=== PATIENT | male | born 1980 | race Caucasian/White ===

== ENCOUNTER → 2017-03-12 | Day surgery (SDC) | payer BC, OTHER ==
[~2017-03-12] MED LIST: LIDOCAINE 2% INJ 20 MG/ML (20 ML MDV) ONE; LIDOCAINE 2% INJ 20 MG/ML SQ ONE
[2017-03-12 09:16] VITALS: BP 131/70; PULSE 89; RESP 18; TEMP 98.9
[2017-03-12 09:29] LABS: Basophils % (A) 0 %; CH 29.8; CHCM 33.9; Eosinophils % (A) 0 %; HCT 38.5 % (39.0-53.0); HDW 2.99; HGB 12.7 gm/dL (13.0-17.5); Luc # (Auto) 0.42; Luc % (Auto) 2; Lymphocytes # (A) 0.8 k/uL (1.0-4.8); Lymphocytes % (A) 4 %; MCH 29.2 pg (25.0-35.0); MCHC 33.1 g/dL (31.0-37.0); MCV 88.3 fL (80.0-100.0); Mean Platelet Volume 7.3; Monocytes # (A) 0.7 k/uL (0-1.0); Monocytes % (A) 4 %; Neutrophils # (A) 17.2 k/uL (1.3-7.7); Neutrophils % (A) 90 %; RBC 4.36 m/uL (4.30-5.90); RDW 13.2 % (11.5-15.5); WBC 19.1 k/uL (3.8-10.6)
--- NOTE | 2017-03-12 11:45 | IR ---
EXAMINATION TYPE: IR cvc insert >=5 years DATE OF EXAM: 03/12/2017 COMPARISON: NONE CLINICAL HISTORY: Cystic fibrosis Needs long-term intravenous access for therapy. PROCEDURE: After informed consent, the skin overlying the right basilic vein was localized with ultrasound and n oted to be compressible and patent. An ultrasound image was obtained and submitted on the patient's chart. The overlying skin was prepped and draped and Lidocaine was used for local anesthesia. A ski n sergio was made with a scalpel. Access was gained to the vein under ultrasound guidance with a 21 ga uge needle and a 0.018 inch wire was advanced. Access site was dilated with Peel-Away sheath and cat heter tailored to the appropriate length and advanced such that the distal tip is at the cavoatrial j unction. Spot image was obtained verifying placement. Catheter was fixed to the skin with suture an d a sterile dressing was placed following hemostasis. Catheter was aspirated and flushed with saline . Patient was discharged in stable condition without complication.Maximal barrier technique is utili zed. Ultrasound image is documented on the chart. Ultrasound used with sterile technique. Fluoro time and fluoroscopic images submitted to document procedure: 14 intraoperative C-arm images, 0.3 minutes fluoroscopy time IMPRESSION: STATUS POST ULTRASOUND AND FLUOROSCOPIC GUIDED PICC LINE PLACEMENT, READY FOR USE. THIS PROCEDURE WAS PERFORMED BY THE UNDERSIGNED.
== END ==
LOC: CATHCVL 08:57
PROVIDERS: ATTEND Radiology Diagnostic Radiology
DX: E84.0 Cystic fibrosis with pulmonary manifestations (principal); K86.81 Exocrine pancreatic insufficiency
CPT/HCPCS: 36569; 76937; 77001; 85025; C1751; C1769; J2001

== ENCOUNTER → 2017-07-02 | Outpatient (CLI) | payer BC, OTHER ==
--- NOTE | 2017-07-02 15:49 | XR ---
EXAMINATION TYPE: XR chest 2V DATE OF EXAM: 07/02/2017 COMPARISON: 03/11/2015 TECHNIQUE: PA and lateral views submitted. HISTORY: Cough FINDINGS: Heart size is stable. There is a persistent interstitial pattern compatible with history of cystic fi brosis. Biapical pleural thickening. More focal area of consolidation in the right upper lobe and per ihilar region. No pneumothorax. Hyperinflation seen. IMPRESSION: 1. Findings compatible with the patient's history of cystic fibrosis. Right perihilar and upper lobe infiltrate suspected correlate for pneumonia.
== END | disposition home or self-care (01) ==
LOC: RADXRMAIN 14:50
PROVIDERS: ATTEND Internal Medicine
DX: R91.8 Other nonspecific abnormal finding of lung field (principal)
CPT/HCPCS: 71046

== ENCOUNTER 2017-07-26 23:19 | Inpatient (IN) | payer BC, OTHER ==
[2017-07-27 00:16] LABS: Basophils % (A) 0 %; Eosinophils # (A) 0.1 k/uL (0-0.7); Eosinophils % (A) 0 %; HCT 37.9 % (39.0-53.0); HGB 12.8 gm/dL (13.0-17.5); Lymphocytes # (A) 0.9 k/uL (1.0-4.8); Lymphocytes % (A) 5 %; MCHC 33.7 g/dL (31.0-37.0); MCV 83.1 fL (80.0-100.0); Mean Platelet Volume 7.4; Monocytes # (A) 0.5 k/uL (0-1.0); Monocytes % (A) 2 %; Neutrophils # (A) 16.9 k/uL (1.3-7.7); Neutrophils % (A) 91 %; Platelet Count 502 k/uL (150-450); RBC 4.56 m/uL (4.30-5.90); WBC 18.5 k/uL (3.8-10.6)
[2017-07-27] MEDS ORDERED: ONDANSETRON 4 MG/2 ML VIAL IVP STA ×2 (00:24→01:43)
[2017-07-27] MEDS ORDERED: MORPHINE SULFATE 4MG/4ML SYRG IV STA ×2 (00:24→00:54)
[2017-07-27] MEDS ORDERED: FAMOTIDINE 20 MG/2 ML VIAL IV STA (00:24)
[2017-07-27] MEDS ORDERED: SODIUM CHLORIDE 0.9% 1,000 ML IV ONE ×2 (00:25→03:14)
[2017-07-27 00:26] LABS: ALT 34 U/L (21-72); AST 30 U/L (17-59); Albumin 4.1 g/dL (3.5-5.0); Alkaline Phosphatase 268 U/L (38-126); Amylase 32 U/L (30-110); Anion Gap 21 mmol/L; Blood Urea Nitrogen 17 mg/dL (9-20); Calcium 10.1 mg/dL (8.4-10.2); Carbon Dioxide 15 mmol/L (22-30); Chloride 104 mmol/L (98-107); Glucose 258 mg/dL (74-99); Lipase <10 U/L (23-300); Potassium 4.5 mmol/L (3.5-5.1); Sodium 140 mmol/L (137-145); Total Bilirubin 0.8 mg/dL (0.2-1.3); Total Protein 8.5 g/dL (6.3-8.2)
[2017-07-27] MEDS ORDERED: LORazepam 2 MG/ML INJ IV STA ×3 (00:52→03:00)
[2017-07-27] MEDS ORDERED: MORPHINE SULFATE 4MG/4ML SYRG ONE (00:57)
[2017-07-27] MEDS ORDERED: fentaNYL (PF) 50 MCG/ML 2 ML AMP IV STA (01:12)
[2017-07-27] MEDS ORDERED: MORPHINE ORAL SOLN 10 MG/5 ML CUP PO PRN (01:15)
[2017-07-27] MEDS ORDERED: NALOXONE 0.4 MG/ML 1 ML VIAL IV PRN (01:15)
[2017-07-27] MEDS ORDERED: HYDROcodone/APAP 7.5-325MG 1 EACH TAB PO PRN (01:17)
[2017-07-27 01:36] LABS: Appearance,Urine Clear (Clear); Bacteria,Urine Rare /hpf; Bilirubin,Urine Negative (Negative); Blood,Urine Trace (Negative); Color,Urine Yellow; Glucose,Urine (UA) Negative (Negative); Ketones,Urine 1+ (Negative); Leukocyte Esterase,Urine Negative (Negative); Nitrite,Urine Negative (Negative); Protein,Urine 2+ (Negative); RBC,Urine 17 /hpf (0-5); Specific Gravity,Urine 1.021 (1.001-1.035); Urobilinogen,Urine <2.0 mg/dL (<2.0); WBC,Urine 2 /hpf (0-5)
[2017-07-27] MEDS ORDERED: RX INFO: IV CONTRAST WAS GIVEN 1 EACH MISC MISCELLANE PRN (01:40)
[2017-07-27] MEDS: ONDANSETRON 4 MG/2 ML VIAL IVP PRN ×3 (01:45→22:56)
--- NOTE | 2017-07-27 01:49 | XR ---
EXAMINATION TYPE: XR abdomen 2V DATE OF EXAM: 07/27/2017 COMPARISON: 03/11/2015 HISTORY: Vomiting and abdominal pain TECHNIQUE: 3 views FINDINGS: There is no sign of free air. There is some thumbprinting involving small bowel in the mid abdomen. Fecal pattern is normal. There are clips from cholecystectomy. Lung bases are clear of conso lidation. IMPRESSION: Small bowel thumbprinting is suggestive of small bowel edema. This is nonspecific and cou ld relate to ischemia or infiltrative process. This exam was discussed with ER physician at 1:45 AM.
--- NOTE | 2017-07-27 03:01 | CT ---
EXAMINATION TYPE: CT abdomen pelvis w con DATE OF EXAM: 07/27/2017 COMPARISON: NONE HISTORY: abd pain CT DLP: 388.80 mGycm Automated exposure control for dose reduction was used. TECHNIQUE: Helical acquisition of images was performed from the lung bases through the pelvis. CONTRAST: Performed without Oral Contrast and with IV Contrast, patient injected with 100 mL of Isovue 300. FINDINGS: The lung bases show peribronchial thickening. There is a hiatal hernia. There is no pleural effusion. Liver shows no focal defect. Bile ducts are not dilated. There are clips from cholecystectomy. There is no evidence of a splenic mass. Pancreas is not well defined. There are multiple loops of small bowel with wall thickening in the upper and mid abdomen. The wall i s thickened up to 10 mm. There is mild free fluid in the abdomen. The distal small bowel has more nor mal wall thickness. Bladder distends smoothly. The kidneys show satisfactory contrast opacification. There is no hydronephrosis. There is a 8 mm tish culus in the lower pole right kidney. There is no retroperitoneal adenopathy. The bony structures appear intact. IMPRESSION: MULTIPLE SMALL BOWEL LOOPS IN THE UPPER ABDOMEN WITH WALL THICKENING INVOLVING THE JEJUNUM. SOME OF T HE APPARENT WALL THICKENING COULD RELATE TO SIGNIFICANT MUCOUS BUILDUP. AN INFILTRATIVE PROCESS INVOL VING THE SMALL BOWEL WALL CANNOT BE EXCLUDED. THE BOWEL IS DILATED UP TO ALMOST 4 CM. MINIMAL ASCITES FLUID. NO DILATED DUCTS. SIGNIFICANT PANCREATIC ATROPHY.
[2017-07-27] MEDS ORDERED: PIPERACILLIN-TAZOBACTAM 3.375 GM in DEXTROSE/WATER 1 50ML.BAG IVPB STA (03:08)
[2017-07-27] MEDS ORDERED: LORazepam 2 MG/ML INJ IV PRN (04:15)
--- NOTE | 2017-07-27 04:23 | ED ---
Abdominal Pain HPI - General Chief Complaint: Abdominal Pain Stated Complaint: abd pain Time Seen by Provider: 07/26/17 23:59 Source: patient Mode of arrival: ambulatory Limitations: no limitations - History of Present Illness Initial Comments: This patient is a 36-year-old man who presents to be evaluated for abdominal pain that is been going on since this evening, and now is accompanied by trackable vomiting. He has a history of cystic fibrosis and has had previous JOHN associated with this. The patient states that the symptoms are similar to previous episodes of JOHN. MD Complaint: abdominal pain -: hour(s) Location: LUQ, RUQ Severity: severe Quality: cramping Consistency: constant Improves With: nothing Worsens With: nothing Associated Symptoms: denies other symptoms - Related Data Home Medications Medication Instructions Recorded Confirmed Albuterol Inhaler [Ventolin 1 - 2 puff INHALATION RT-Q6H PRN 03/11/15 07/27/17 Inhaler] Azithromycin [Zithromax] 250 mg PO MOWEFR 03/11/15 07/27/17 Cetirizine HCl [Zyrtec] 5 mg PO DAILY 03/11/15 07/27/17 Cholecalciferol [Vitamin D3] 2,000 unit PO DAILY 03/11/15 07/27/17 Esomeprazole Magnesium [NexIUM] 40 mg PO BID 03/11/15 07/27/17 Fluticasone Nasal [place] [Flonase 1 spray EA NOSTRIL BID 03/11/15 07/27/17 Nasal [place]] Fluticasone/Salmeterol [Advair 1 puff INHALATION RT-BID 03/11/15 07/27/17 250-50 Diskus] HYDROcodone/APAP 7.5-325MG [[place] 1 tab PO Q6HR PRN 03/11/15 07/27/17 7.5-325] Ibuprofen [Motrin] 1,600 mg PO BID 03/11/15 07/27/17 Choqsv-Aoutbimz-Yssoick [Zenpep 20] 1 cap PO DIRECTED PRN 03/11/15 07/27/17 Pulmozyme 1mg/Ml 1 ml INHALATION RT-DAILY 03/11/15 07/27/17 Ursodiol 500 mg PO AC-BID 03/11/15 07/27/17 Colistin 1 puff INHALATION RT-BID 07/27/17 07/27/17 Diltiazem Cd [Cardizem Cd] 180 mg PO DAILY 07/27/17 07/27/17 Insulin Aspart [NovoLOG 6 - 10 unit SQ AC-TID 07/27/17 07/27/17 (formulary)] Insulin Glargine [Lantus] 16 unit SQ HS 07/27/17 07/27/17 Allergies Allergy/AdvReac Type Severity Reaction Status Date / Time meperidine HCl [From Demerol] Allergy Rash/Hives Verified 07/27/17 11:16 morphine Allergy Rash/Hives Verified 07/27/17 11:16 Review of Systems ROS Statement: Those systems with pertinent positive or pertinent negative responses have been documented in the HPI. ROS Other: All systems not noted in ROS Statement are negative. Constitutional: Denies: fever, chills Respiratory: Reports: cough (Chronic). Denies: dyspnea Cardiovascular: Denies: chest pain, palpitations, edema Gastrointestinal: Reports: abdominal pain, nausea, vomiting. Denies: diarrhea, melena, hematochezia Genitourinary: Denies: dysuria, hematuria Musculoskeletal: Denies: back pain Skin: Denies: rash Neurological: Denies: headache, weakness, numbness Past Medical History Additional Past Medical History / Comment(s): lung infection,cystic fibrosis, History of Any Multi-Drug Resistant Organisms: None Reported Past Surgical History: Cholecystectomy, Hernia Repair Additional Past Surgical History / Comment(s): ear surgery, sinus surgery, Past Anesthesia/Blood Transfusion Reactions: Previous Problems w/ Anesthesia Additional Past Anesthesia/Blood Transfusion Reaction / Comment(s): "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 Past Psychological History: No Psychological Hx Reported Smoking Status: Never smoker Past Alcohol Use History: None Reported Past Drug Use History: None Reported - Past Family History Mother Family Medical History: No Reported History Father Additional Family Medical History / Comment(s): Heart Disease General Exam Limitations: no limitations General appearance: alert, in distress Head exam: Present: atraumatic, normocephalic Eye exam: Present: normal appearance. Absent: scleral icterus, conjunctival injection ENT exam: Present: normal oropharynx Neck exam: Present: normal inspection Respiratory exam: Present: normal lung sounds bilaterally. Absent: respiratory distress, wheezes, rales, rhonchi, stridor Cardiovascular Exam: Present: regular rate, normal rhythm, normal heart sounds. Absent: systolic murmur, diastolic murmur, rubs, gallop GI/Abdominal exam: Present: soft, tenderness (There is mild diffuse tenderness) , diminished bowel sounds. Absent: distended, guarding, rebound, rigid, mass, pulsatile mass, hernia Extremities exam: Present: normal inspection, normal capillary refill. Absent: pedal edema, calf tenderness Back exam: Present: normal inspection. Absent: CVA tenderness (R), CVA tenderness (L) Neurological exam: Present: alert Skin exam: Present: warm, dry, intact, normal color. Absent: rash Course Vital Signs 07/26/17 07/27/17 07/27/17 23:22 01:25 02:50 Temperature 97.0 F L Pulse Rate 90 95 Respiratory 18 17 Rate Blood Pressure 167/83 146/87 O2 Sat by Pulse 96 95 Oximetry 07/27/17 04:06 Temperature Pulse Rate 115 H Respiratory 20 Rate Blood Pressure 146/75 O2 Sat by Pulse 96 Oximetry Medical Decision Making - Lab Data Result diagrams: 07/26/17 23:50 07/26/17 23:50 Lab Results 07/26/17 07/26/17 Range/Units 23:50 23:50 WBC 18.5 H (3.8-10.6) k/uL RBC 4.56 (4.30-5.90) m/uL Hgb 12.8 L (13.0-17.5) gm/dL Hct 37.9 L (39.0-53.0) % MCV 83.1 (80.0-100.0) fL MCH 28.0 (25.0-35.0) pg MCHC 33.7 (31.0-37.0) g/dL RDW 15.0 (11.5-15.5) % Plt Count 502 H (150-450) k/uL Neutrophils % 91 % Lymphocytes % 5 % Monocytes % 2 % Eosinophils % 0 % Basophils % 0 % Neutrophils # 16.9 H (1.3-7.7) k/uL Lymphocytes # 0.9 L (1.0-4.8) k/uL Monocytes # 0.5 (0-1.0) k/uL Eosinophils # 0.1 (0-0.7) k/uL Basophils # 0.0 (0-0.2) k/uL Sodium 140 (137-145) mmol/L Potassium 4.5 (3.5-5.1) mmol/L Chloride 104 (98-107) mmol/L Carbon Dioxide 15 L (22-30) mmol/L Anion Gap 21 mmol/L BUN 17 (9-20) mg/dL Creatinine 0.80 (0.66-1.25) mg/dL Est GFR (CKD-EPI)AfAm >90 (>60 ml/min/1.73 sqM) Est GFR (CKD-EPI)NonAf >90 (>60 ml/min/1.73 sqM) Glucose 258 H (74-99) mg/dL Calcium 10.1 (8.4-10.2) mg/dL Total Bilirubin 0.8 (0.2-1.3) mg/dL AST 30 (17-59) U/L ALT 34 (21-72) U/L Alkaline Phosphatase 268 H (38-126) U/L Total Protein 8.5 H (6.3-8.2) g/dL Albumin 4.1 (3.5-5.0) g/dL Amylase 32 (30-110) U/L Lipase <10 L (23-300) U/L Disposition Clinical Impression: Intractable nausea and vomiting, Abdominal pain, Leukocytosis Disposition: ADMITTED IP TO THIS HOSP Condition: Fair
[2017-07-27] MEDS: SODIUM CHLORIDE 0.9% 1,000 ML IV SCH ×4 (04:48→20:39)
[2017-07-27] MEDS ORDERED: MORPHINE SULFATE 4MG/4ML SYRG IV PRN (04:56)
[2017-07-27] MEDS ORDERED: MORPHINE SULF 5MG/10ML VL IV ONE (05:30)
[2017-07-27] MEDS ORDERED: PANTOPRAZOLE 40 MG TABLET PO SCH (07:30)
[2017-07-27] MEDS: DORNASE ALFA 1 MG/ML 2.5 ML AMP INHALATION SCH (07:33)
[2017-07-27] MEDS: ALBUTEROL NEBULIZED 2.5 MG/3 ML INHALATION PRN ×2 (07:33→21:08)
[2017-07-27] MEDS: SYMBICORT 80-4.5 MCG INHALER INHALATION SCH ×2 (07:33→21:08)
[2017-07-27 07:44] VITALS: RESP 16
[2017-07-27] MEDS ORDERED: LIPASE 5,000/PROTEASE 17,000/AMYLASE 27,0000 PO PRN (08:00)
[2017-07-27] MEDS: URSODIOL 500 MG PO SCH ×2 (08:08→16:37)
[2017-07-27] MEDS: CHOLECALCIFEROL 1,000 UNIT TAB PO SCH (08:08)
[2017-07-27] MEDS: FLUTICASONE 50MCG/SPRAY NASAL 16GM EA NOSTRIL SCH ×2 (08:18→20:35)
[2017-07-27] MEDS: LORATADINE 10 MG TAB PO SCH (08:18)
[2017-07-27] MEDS ORDERED: IBUPROFEN 800 MG TAB PO SCH (09:00)
[2017-07-27] MEDS: KETOROLAC 30 MG/ML 1 ML VIAL IVP PRN ×3 (10:55→22:19)
[2017-07-27] MEDS: PANTOPRAZOLE 40 MG/10 ML VIAL IVP SCH ×2 (11:16→20:39)
--- NOTE | 2017-07-27 11:31 | P.HPIM ---
History of Present Illness 36-year-old gentleman came in with compensative abdominal pain diffuse luis manuel umblical about the 11/28 in severity nonradiating patient does have history of cystic fibrosis. CT of the abdomen did show partial small bowel obstruction secondary to the mucus buildup probably from cystic fibrosis in the jejunal area. Patient is nothing by mouth IV fluids nonsteroidal inflammatory is from pain patient did vomit yesterday and today morning his symptoms started the last night. Patient is still complaining of nausea but I leave the decision and off NG tube to surgery. Review of Systems REVIEW OF SYSTEMS: CONSTITUTIONAL: No fever, no malaise, no fatigue. HEENT: No recent visual problems or hearing problems. Denied any sore throat. CARDIOVASCULAR: No chest pain, orthopnea, PND, no palpitations, no syncope. PULMONARY: No shortness of breath, no cough, no hemoptysis. GASTROINTESTINAL: As described in HPI NEUROLOGICAL: No headaches, no weakness, no numbness. HEMATOLOGICAL: Denies any bleeding or petechiae. GENITOURINARY: Denies any burning micturition, frequency, or urgency. MUSCULOSKELETAL/RHEUMATOLOGICAL: Denies any joint pain, swelling, or any muscle pain. ENDOCRINE: Denies any polyuria or polydipsia. The rest of the 14-point review of systems is negative. 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 Past Psychological History: No Psychological Hx Reported Smoking Status: Never smoker Past Alcohol Use History: None Reported Past Drug Use History: None Reported - Past Family History Mother Family Medical History: No Reported History Father Additional Family Medical History / Comment(s): Heart Disease Medications and Allergies Home Medications Medication Instructions Recorded Confirmed Type Albuterol Inhaler [Ventolin 1 - 2 puff INHALATION RT-Q6H PRN 03/11/15 07/27/17 History Inhaler] Azithromycin [Zithromax] 250 mg PO MOWEFR 03/11/15 07/27/17 History Cetirizine HCl [Zyrtec] 5 mg PO DAILY 03/11/15 07/27/17 History Cholecalciferol [Vitamin D3] 2,000 unit PO DAILY 03/11/15 07/27/17 History Esomeprazole Magnesium [NexIUM] 40 mg PO BID 03/11/15 07/27/17 History Fluticasone Nasal [place] [Flonase 1 spray EA NOSTRIL BID 03/11/15 07/27/17 History Nasal [place]] Fluticasone/Salmeterol [Advair 1 puff INHALATION RT-BID 03/11/15 07/27/17 History 250-50 Diskus] HYDROcodone/APAP 7.5-325MG [[place] 1 tab PO Q6HR PRN 03/11/15 07/27/17 History 7.5-325] Ibuprofen [Motrin] 1,600 mg PO BID 03/11/15 07/27/17 History Ckjuld-Ybmfolia-Sqvhizh [Zenpep 20] 1 cap PO DIRECTED PRN 03/11/15 07/27/17 History Pulmozyme 1mg/Ml 1 ml INHALATION RT-DAILY 03/11/15 07/27/17 History Ursodiol 500 mg PO AC-BID 03/11/15 07/27/17 History Colistin 1 puff INHALATION RT-BID 07/27/17 07/27/17 History Diltiazem Cd [Cardizem Cd] 180 mg PO DAILY 07/27/17 07/27/17 History Insulin Aspart [NovoLOG 6 - 10 unit SQ AC-TID 07/27/17 07/27/17 History (formulary)] Insulin Glargine [Lantus] 16 unit SQ HS 07/27/17 07/27/17 History Allergies Allergy/AdvReac Type Severity Reaction Status Date / Time meperidine HCl [From Demerol] Allergy Rash/Hives Verified 07/27/17 11:16 morphine Allergy Rash/Hives Verified 07/27/17 11:16 Physical Exam Vitals: Vital Signs Temp Pulse Pulse Resp BP BP Pulse Ox 07/27/17 07:54 81 16 07/27/17 07:43 133 H 16 07/27/17 07:42 133 H 18 07/27/17 07:35 136 H 18 07/27/17 07:00 98.1 F 81 16 129/78 94 L 07/27/17 05:07 128 H 18 07/27/17 04:32 97.0 F L 128 H 18 158/80 91 L 07/27/17 04:06 115 H 20 146/75 96 07/27/17 02:50 97.0 F L 07/27/17 01:25 95 17 146/87 95 07/26/17 23:22 90 18 167/83 96 Intake and Output 07/26/17 07/27/17 07/27/17 22:59 06:59 14:59 Intake Total 1500 Balance 1500 Intake: Amount of Fluid Infused ( 1500 ml) Other: Voiding Method Toilet Toilet # Voids 0 0 Weight 63.503 kg PHYSICAL EXAMINATION: GENERAL: The patient is alert and oriented x3, not in any acute distress. Well developed, well nourished. HEENT: Pupils are round and equally reacting to light. EOMI. No scleral icterus. No conjunctival pallor. Normocephalic, atraumatic. No pharyngeal erythema. No thyromegaly. CARDIOVASCULAR: S1 and S2 present. No murmurs, rubs, or gallops. PULMONARY: Chest is clear to auscultation, no wheezing or crackles. ABDOMEN: Soft, minimal tenderness diffuse without rebound or rigidity, normoactive bowel sounds MUSCULOSKELETAL: No joint swelling or deformity. EXTREMITIES: No cyanosis, clubbing, or pedal edema. NEUROLOGICAL: Gross neurological examination did not reveal any focal deficits. SKIN: No rashes. Results CBC & Chem 7: 07/26/17 23:50 07/26/17 23:50 Labs: Abnormal Lab Results - Last 24 Hours (Table) 07/26/17 07/26/17 07/27/17 Range/Units 23:50 23:50 01:15 WBC 18.5 H (3.8-10.6) k/uL Hgb 12.8 L (13.0-17.5) gm/dL Hct 37.9 L (39.0-53.0) % Plt Count 502 H (150-450) k/uL Neutrophils # 16.9 H (1.3-7.7) k/uL Lymphocytes # 0.9 L (1.0-4.8) k/uL Carbon Dioxide 15 L (22-30) mmol/L Glucose 258 H (74-99) mg/dL Alkaline Phosphatase 268 H (38-126) U/L Total Protein 8.5 H (6.3-8.2) g/dL Lipase <10 L (23-300) U/L Urine Protein 2+ H (Negative) Urine Ketones 1+ H (Negative) Urine Blood Trace H (Negative) Urine RBC 17 H (0-5) /hpf Urine Bacteria Rare H (None) /hpf Thrombosis Risk Factor Assmnt - Choose All That Apply Any of the Below Risk Factors Present?: No Assessment and Plan Plan: -Partial small bowel obstruction with history of cystic fibrosis secondary to mucous plugging in the vaginal area. Bowel rest, IV fluids. I for pain and avoid opiates. -Cystic fibrosis no evidence of infection at this point of time not require any antibiotics will discuss with her cystic fibrosis physician at [facility] [place] later today commuter Pulmozyme and the pancreatic enzyme supplementation. -Tachycardia secondary to pain can use IV fluids, above-mentioned pain management.
--- NOTE | 2017-07-27 12:41 | P.GSCN ---
History of Present Illness Consult date: 07/27/17 History of present illness: CHIEF COMPLAINT: Abdominal pain HISTORY OF PRESENT ILLNESS: The patient is a 36-year-old gentleman with history of cystic fibrosis. He presents with acute small bowel obstruction. He follows at [facility] with a cystic fibrosis specialist. He had similar episode in the past which was treated with laxatives such as MiraLAX. His last bowel movement was yesterday. He is passing flatus. He completed his CT of the abdomen and pelvis consistent with mucous plug along the intestine. PAST MEDICAL HISTORY: See list. PAST SURGICAL HISTORY: See list. MEDICATIONS: See list. ALLERGIES: See list. SOCIAL HISTORY: No illicit drug use FAMILY HISTORY: Cystic fibrosis REVIEW OF ORGAN SYSTEMS: CONSTITUTIONAL: No fevers or chills HEENT: No troubles with vision or hearing. No reports of dysphagia. ENDOCRINE: No reports of thyroid disorders. No diabetes. CARDIOVASCULAR: No previous heart attack or congestive heart failure. RESPIRATORY: History of cystic fibrosis with intermittent pneumonias. GASTROINTESTINAL: No reports of recent blood in stools. Has gastroesophageal reflux disease. Has chronic constipation. Has pancreatic insufficiency. NEURO: No reports of stroke or seizure disorders. PSYCH: No reports of depression or suicidal ideation. HEMATOLOGIC: No easy bruising or bleeding LYMPHATIC: The patient denies any lumps and bumps around the neck. GENITOURINARY: Denies any blood in urine or increased urinary frequency. MUSCULOSKELETAL: Has back pain, stiffness or joint arthritis. PHYSICAL EXAM: VITAL SIGNS: Currently stable. GENERAL: Well-developed male in no acute distress. HEENT: No sclera icterus. Extraocular movements grossly intact. Moist buccal mucosa. Head is atraumatic, normocephalic. Hears conversational speech. No nasal drainage. NECK: Supple without lymphadenopathy. CHEST: Non-labored respirations and equal bilateral excursions. CARDIOVASCULAR: Regular rate with regular rhythm. Palpable 2+ radial pulses. ABDOMEN: Soft. Minimal distention. No peritonitis. Mild generalized tenderness. MUSCULOSKELETAL: No clubbing, cyanosis or edema. NEUROLOGIC: No focal or lateralizing signs. Cranial nerves II through XII grossly intact. PSYCH: Appropriate affect. Alert and oriented to person, place and time. LABS: Reviewed ASSESSMENT: 1. 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 Distal intestinal obstruction syndrome in cystic fibrosis patients treatment consists of rehydration, stool softeners, and a splenic therapy 2. Per discussion with family, Gastrografin enema as recommended by cystic fibrosis specialist 3. Avoid dehydration and optimize pancreatic enzyme dosage may reduce the chance of further episodes. 4. Prophylactic laxative therapy is widely used. 5. May benefit from GI consultation. Thank you for this kind consultation. 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 Past Psychological History: No Psychological Hx Reported Smoking Status: Never smoker Past Alcohol Use History: None Reported Past Drug Use History: None Reported - Past Family History Mother Family Medical History: No Reported History Father Additional Family Medical History / Comment(s): Heart Disease Medications and Allergies Home Medications Medication Instructions Recorded Confirmed Type Albuterol Inhaler [Ventolin 1 - 2 puff INHALATION RT-Q6H PRN 03/11/15 07/27/17 History Inhaler] Azithromycin [Zithromax] 250 mg PO MOWEFR 03/11/15 07/27/17 History Cetirizine HCl [Zyrtec] 5 mg PO DAILY 03/11/15 07/27/17 History Cholecalciferol [Vitamin D3] 2,000 unit PO DAILY 03/11/15 07/27/17 History Esomeprazole Magnesium [NexIUM] 40 mg PO BID 03/11/15 07/27/17 History Fluticasone Nasal Toone [Flonase 1 spray EA NOSTRIL BID 03/11/15 07/27/17 History Nasal Toone] Fluticasone/Salmeterol [Advair 1 puff INHALATION RT-BID 03/11/15 07/27/17 History 250-50 Diskus] HYDROcodone/APAP 7.5-325MG [[place] 1 tab PO Q6HR PRN 03/11/15 07/27/17 History 7.5-325] Ibuprofen [Motrin] 1,600 mg PO BID 03/11/15 07/27/17 History Ytgfpw-Gkiutele-Ybhkpoe [Zenpep 20] 1 cap PO DIRECTED PRN 03/11/15 07/27/17 History Pulmozyme 1mg/Ml 1 ml INHALATION RT-DAILY 03/11/15 07/27/17 History Ursodiol 500 mg PO AC-BID 03/11/15 07/27/17 History Colistin 1 puff INHALATION RT-BID 07/27/17 07/27/17 History Diltiazem Cd [Cardizem Cd] 180 mg PO DAILY 07/27/17 07/27/17 History Insulin Aspart [NovoLOG 6 - 10 unit SQ AC-TID 07/27/17 07/27/17 History (formulary)] Insulin Glargine [Lantus] 16 unit SQ HS 07/27/17 07/27/17 History Allergies Allergy/AdvReac Type Severity Reaction Status Date / Time meperidine HCl [From Demerol] Allergy Rash/Hives Verified 07/27/17 11:16 morphine Allergy Rash/Hives Verified 07/27/17 11:16 Surgical - Exam Vital Signs Pulse Resp BP Pulse Ox 90 18 167/83 96 07/26/17 23:22 07/26/17 23:22 07/26/17 23:22 07/26/17 23:22 Results - Labs 07/26/17 23:50 07/26/17 23:50 Abnormal Lab Results - Last 24 Hours (Table) 07/26/17 07/26/17 07/27/17 Range/Units 23:50 23:50 01:15 WBC 18.5 H (3.8-10.6) k/uL Hgb 12.8 L (13.0-17.5) gm/dL Hct 37.9 L (39.0-53.0) % Plt Count 502 H (150-450) k/uL Neutrophils # 16.9 H (1.3-7.7) k/uL Lymphocytes # 0.9 L (1.0-4.8) k/uL Carbon Dioxide 15 L (22-30) mmol/L Glucose 258 H (74-99) mg/dL Alkaline Phosphatase 268 H (38-126) U/L Total Protein 8.5 H (6.3-8.2) g/dL Lipase <10 L (23-300) U/L Urine Protein 2+ H (Negative) Urine Ketones 1+ H (Negative) Urine Blood Trace H (Negative) Urine RBC 17 H (0-5) /hpf Urine Bacteria Rare H (None) /hpf Microbiology - Last 24 Hours (Table) 07/27/17 01:15 Urine Culture - Preliminary Urine,Voided Diabetes panel 07/26/17 Range/Units 23:50 Sodium 140 (137-145) mmol/L Potassium 4.5 (3.5-5.1) mmol/L Chloride 104 (98-107) mmol/L Carbon Dioxide 15 L (22-30) mmol/L BUN 17 (9-20) mg/dL Creatinine 0.80 (0.66-1.25) mg/dL Glucose 258 H (74-99) mg/dL Calcium 10.1 (8.4-10.2) mg/dL AST 30 (17-59) U/L ALT 34 (21-72) U/L Alkaline Phosphatase 268 H (38-126) U/L Total Protein 8.5 H (6.3-8.2) g/dL Albumin 4.1 (3.5-5.0) g/dL Calcium panel 07/26/17 Range/Units 23:50 Calcium 10.1 (8.4-10.2) mg/dL Albumin 4.1 (3.5-5.0) g/dL Pituitary panel 07/26/17 Range/Units 23:50 Sodium 140 (137-145) mmol/L Potassium 4.5 (3.5-5.1) mmol/L Chloride 104 (98-107) mmol/L Carbon Dioxide 15 L (22-30) mmol/L BUN 17 (9-20) mg/dL Creatinine 0.80 (0.66-1.25) mg/dL Glucose 258 H (74-99) mg/dL Calcium 10.1 (8.4-10.2) mg/dL Adrenal panel 07/26/17 Range/Units 23:50 Sodium 140 (137-145) mmol/L Potassium 4.5 (3.5-5.1) mmol/L Chloride 104 (98-107) mmol/L Carbon Dioxide 15 L (22-30) mmol/L BUN 17 (9-20) mg/dL Creatinine 0.80 (0.66-1.25) mg/dL Glucose 258 H (74-99) mg/dL Calcium 10.1 (8.4-10.2) mg/dL Total Bilirubin 0.8 (0.2-1.3) mg/dL AST 30 (17-59) U/L ALT 34 (21-72) U/L Alkaline Phosphatase 268 H (38-126) U/L Total Protein 8.5 H (6.3-8.2) g/dL Albumin 4.1 (3.5-5.0) g/dL
[2017-07-27] MEDS ORDERED: MAGNESIUM HYDROXIDE 2,400 MG/10 ML CUP PO STA (12:42)
[2017-07-27] MEDS: LACTULOSE 20 GM/30 ML CUP PO SCH ×3 (13:09→22:19)
[2017-07-28] MEDS: KETOROLAC 30 MG/ML 1 ML VIAL IVP PRN ×3 (05:40→17:08)
[2017-07-28] MEDS: SODIUM CHLORIDE 0.9% 1,000 ML IV SCH ×3 (05:51→17:05)
[2017-07-28] MEDS: ALBUTEROL NEBULIZED 2.5 MG/3 ML INHALATION PRN (07:20)
[2017-07-28] MEDS: SYMBICORT 80-4.5 MCG INHALER INHALATION SCH (07:20)
[2017-07-28] MEDS: DORNASE ALFA 1 MG/ML 2.5 ML AMP INHALATION SCH (07:20)
[2017-07-28 07:29] LABS: HCT 35.8 % (39.0-53.0); HGB 11.3 gm/dL (13.0-17.5); Hypochromasia Slight; MCH 26.4 pg (25.0-35.0); MCHC 31.6 g/dL (31.0-37.0); MCV 83.6 fL (80.0-100.0); Mean Platelet Volume 7.5; Platelet Count 490 k/uL (150-450); RBC 4.28 m/uL (4.30-5.90); RDW 15.6 % (11.5-15.5)
[2017-07-28 07:32] LABS: WBC 43.2 k/uL (3.8-10.6)
[2017-07-28 07:39] LABS: Anion Gap 14 mmol/L; Blood Urea Nitrogen 26 mg/dL (9-20); Carbon Dioxide 17 mmol/L (22-30); Chloride 111 mmol/L (98-107); Glucose 175 mg/dL (74-99); Potassium 4.8 mmol/L (3.5-5.1); Sodium 142 mmol/L (137-145)
[2017-07-28] MEDS: ONDANSETRON 4 MG/2 ML VIAL IVP PRN ×2 (07:42→17:09)
[2017-07-28] MEDS: PANTOPRAZOLE 40 MG/10 ML VIAL IVP SCH (07:44)
[2017-07-28] MEDS: LACTULOSE 20 GM/30 ML CUP PO SCH ×3 (08:17→17:16)
[2017-07-28] MEDS: LORATADINE 10 MG TAB PO SCH (08:19)
[2017-07-28] MEDS: CHOLECALCIFEROL 1,000 UNIT TAB PO SCH (08:19)
[2017-07-28] MEDS: FLUTICASONE 50MCG/SPRAY NASAL 16GM EA NOSTRIL SCH (08:19)
[2017-07-28] MEDS ORDERED: DILTIAZEM CD 180 MG CAP.ER.24H PO SCH (09:00)
[2017-07-28] MEDS ORDERED: AZITHROMYCIN 250 MG TAB PO SCH (09:00)
[2017-07-28] MEDS: URSODIOL 500 MG PO SCH ×2 (09:35→17:06)
[2017-07-28 10:09] LABS: Basophils % (A) 0 %; Eosinophils % (A) 0 %; HCT 35.4 % (39.0-53.0); Hypochromasia Slight; Lymphocytes % (A) 3 %; MCH 26.5 pg (25.0-35.0); MCHC 31.1 g/dL (31.0-37.0); Mean Platelet Volume 7.5; Monocytes # (A) 1.2 k/uL (0-1.0); Monocytes % (A) 3 %; Neutrophils # (A) 33.3 k/uL (1.3-7.7); Neutrophils % (A) 93 %; Platelet Count 462 k/uL (150-450); RBC 4.17 m/uL (4.30-5.90); RDW 15.4 % (11.5-15.5)
[2017-07-28 10:11] LABS: WBC 35.8 k/uL (3.8-10.6)
[2017-07-28 10:29] LABS: Toxic Granulation Present
--- NOTE | 2017-07-28 10:55 | XR ---
EXAMINATION TYPE: XR abdomen complete w decub DATE OF EXAM: 07/28/2017 COMPARISON: 07/27/2017 HISTORY: Abdominal pain and vomiting TECHNIQUE: Supine, upright, and left side down lateral decubitus views of the abdomen are obtained. FINDINGS: There is dilated bowel loops with air-fluid levels. Thickening of the wall of the small bowel loops i n the left abdomen noted. Surgical clips in the right upper quadrant noted. Reticular pattern to the lung bryan is seen. Radiopaque density seen overlying the pubic rami may be related to previous cont rast correlate clinically. IMPRESSION: Persistent dilated small bowel loops with air-fluid levels in a pattern suggestive of partial obstruc tion or severe ileus from inflammatory changes. Correlate for chronic interstitial lung disease or cystic fibrosis.
[2017-07-28] MEDS: PIPERACILLIN-TAZOBACTAM 3.375 GM in DEXTROSE/WATER 1 50ML.BAG IVPB SCH ×2 (11:17→17:04)
[2017-07-28] MEDS: INSULIN ASPART 100 UNIT/ML 1 ML 10 ML VIAL SQ SCH ×2 (12:23→17:05)
--- NOTE | 2017-07-28 12:25 | P.PN ---
Subjective Progress Note Date: 07/28/17 07/27/2017-Note per covering provider, Dr. Carvajal 36-year-old gentleman came in with compensative abdominal pain diffuse luis manuel umblical about the 11/28 in severity nonradiating patient does have history of cystic fibrosis. CT of the abdomen did show partial small bowel obstruction secondary to the mucus buildup probably from cystic fibrosis in the jejunal area. Patient is nothing by mouth IV fluids nonsteroidal inflammatory is from pain patient did vomit yesterday and today morning his symptoms started the last night. Patient is still complaining of nausea but I leave the decision and off NG tube to surgery. 07/28/2017 patient seen and examined at the bedside on rounds with Dr. Acosta. Patient is sitting up at the site of the bed eating full liquid diet. Patient does complain of slight nausea but denies vomiting. Patient states he is passing flatus. Patient's last bowel movement was 07/26/2017. Patients heart rate was in the 130s this morning. Patient takes cardizem at home but has not been receiving it during hospitalization. Patient does complain of abdominal pain. Patient has been receiving Toradol which patient states has been helping. Dr. Acosta spoke with patient regarding narcotics and would like to avoid use of narcotics if Toradol is managing pain due to his bowel obstruction. WBC this morning is 43.2, up from 18.5 on 07/26/2017. Patient has been afebrile. Blood pressure is slightly elevated this morning at 156/98 which may be secondary to nausea and pain. Gastrografin enema has been ordered per surgery. Objective - Vital Signs Vital signs: Vital Signs Temp 97.8 F 07/28/17 07:00 Pulse 136 H 07/28/17 07:44 Resp 16 07/28/17 07:00 BP 156/98 07/28/17 07:00 Pulse Ox 97 07/28/17 07:00 Intake & Output 07/27/17 07/28/17 07/28/17 18:59 06:59 18:59 Intake Total 1150 2090 240 Output Total 1100 600 Balance 50 1490 240 Intake: Intake, IV Titration 1050 1200 Amount Piperacillin-Tazobactam 3 50 .375 gm In Dextrose/Water 1 50ml.bag @ 12.5 mls/hr IVPB ONCE STA Rx#: [id number] Sodium Chloride 0.9% 1, 1000 1200 000 ml @ 150 mls/hr IV . Q6H40M [facility] Rx#:[id number] Oral 100 890 240 Output: Urine 1100 Emesis 600 Other: Voiding Method Toilet Toilet Urinal Urinal # Voids 0 2 - Exam GENERAL: This is a 36-year-old male in no apparent distress at the time of examination. Pleasant and cooperative. HEENT: Head is atraumatic, normocephalic. Pupils are equal, round, and reactive to light. Sclerae anicteric. Conjunctivae are clear. Mucus membranes of the mouth are moist. Neck is supple. RESPIRATORY: Clear to ausculation. No wheezes, rales, or rhonchi. No use of accessory muscles. Patient maintaining oxygen saturation greater than 92%. No chest wall tenderness is noted on palpation or with deep breathing. CARDIOVASCULAR: Tachycardic. Regular rate and rhythm. S1 and S2 noted. No systolic or diastolic murmur auscultated. No JVD noted. No S3 or S4 noted. GASTROINTESTINAL: Abdomen soft and round, but distended. Bowel sounds auscultated x 4 quadrants. Slight pain and tenderness noted upon palpation. INTEGUMENTARY: No cyanosis. No jaundice. No rashes noted. No cellulitis noted. EXTREMITIES: 2+ peripheral pulses. No evidence of peripheral edema. No calf tenderness noted. NEUROLOGIC: Cranial nerves II-XII intact. PSYCHIATRIC: Awake, alert, and oriented X 3. Appropriate affect. Intact judgement and insight. - Labs CBC & Chem 7: 07/28/17 06:54 07/28/17 06:54 Labs: Abnormal Lab Results - Last 24 Hours (Table) 07/28/17 07/28/17 Range/Units 06:54 06:54 WBC 43.2 H* (3.8-10.6) k/uL RBC 4.28 L (4.30-5.90) m/uL Hgb 11.3 L (13.0-17.5) gm/dL Hct 35.8 L (39.0-53.0) % RDW 15.6 H (11.5-15.5) % Plt Count 490 H (150-450) k/uL Chloride 111 H (98-107) mmol/L Carbon Dioxide 17 L (22-30) mmol/L BUN 26 H (9-20) mg/dL Glucose 175 H (74-99) mg/dL Microbiology - Last 24 Hours (Table) 07/27/17 01:15 Urine Culture - Preliminary Urine,Voided Assessment and Plan Plan: ASSESSMENT: Distal intestinal obstructive syndrome secondary to cystic fibrosis Cystic fibrosis, follows with specialist at [facility] Leukocytosis, no evidence of sepsis, infectious disease consulted to r/o underlying infection PLAN: Gen. surgery on consult. Appreciate recommendations and input Gastrografin enema ordered per general surgery GI consulted by general surgery. Await further recommendations and input Repeat CBC Consult Dr. Carter, infectious disease Resume home dose of Cardizem Resume patient's Lantus and NovoLog with meals. Patient states he takes 6-10 units with meals depending on his carb intake. Patient states he checks his blood sugar 2 hours after eating. will order accuchecks PC-TID Discontinue morphine as it is listed as an allergy in patients chart with reaction of rash/hives Continue Toradol for pain PRN Monitor labs GI prophylaxis: Protonix 40 mg IV BID DVT prophylaxis: VAUGHN hose to bilateral lower extremities Monitor vital signs and address as appropriate Discharge planning: Patient to return home when stable Further recommendations pending patient's course Nurse practitioner note has been reviewed by physician. Signing provider agrees with the documented findings, assessment, and plan of care.
--- NOTE | 2017-07-28 13:34 | P.PN ---
<Sol Vargasne M - Last Filed: 07/28/17 12:55> Subjective Progress Note Date: 07/28/17 36-year-old male seen at bedside reports continues to have abdominal pain. States was nauseated earlier and did vomit earlier. Patient reports having heartburn sensation which he states is chronic and uses Nexium at home. Abdomen remains firm and distended with a few hypoactive bowel tones. Patient has a history of cystic fibrosis follows up at [facility] with a specialist. CAT scan of the abdomen and pelvis consistent with partial small bowel obstruction secondary to mucus buildup likely due to cystic fibrosis in the jejunal area. Patient is receiving IV hydration remains NP0 family is interested in transferring patient to [facility] to his specialist that deals with his cystic fibrosis case monitor pursuing plan Objective - Vital Signs Vital signs: Vital Signs Temp 97.8 F 07/28/17 07:00 Pulse 110 H 07/28/17 08:00 Resp 16 07/28/17 08:00 BP 156/98 07/28/17 07:00 Pulse Ox 97 07/28/17 07:00 Intake & Output 07/27/17 07/28/17 07/28/17 18:59 06:59 18:59 Intake Total 1150 2090 240 Output Total 1100 600 Balance 50 1490 240 Intake: Intake, IV Titration 1050 1200 Amount Piperacillin-Tazobactam 3 50 .375 gm In Dextrose/Water 1 50ml.bag @ 12.5 mls/hr IVPB ONCE STA Rx#: [id number] Sodium Chloride 0.9% 1, 1000 1200 000 ml @ 150 mls/hr IV . Q6H40M [facility] Rx#:[id number] Oral 100 890 240 Output: Urine 1100 Emesis 600 Other: Voiding Method Toilet Toilet Toilet Urinal Urinal Urinal # Voids 0 2 - Exam Physical exam 36-year-old male sitting up in the room pleasant cooperative oriented 3 reports still having a nausea sensation is heartburn Lungs essentially clear no audible wheezing adequate air movement no conversational dyspnea noted no cough nasal cannula 2 L keeping sat greater than 90% Heart S1-S2 audible and regular no murmur noted denying chest pain abdomen soft positive tenderness with palpitation to the abdominal wall distended firm hypoactive bowel tones Extremities no edema noted - Labs CBC & Chem 7: 07/28/17 09:46 07/28/17 06:54 Labs: Abnormal Lab Results - Last 24 Hours (Table) 07/28/17 07/28/17 07/28/17 Range/Units 06:54 06:54 09:46 WBC 43.2 H* 35.8 H* (3.8-10.6) k/uL RBC 4.28 L 4.17 L (4.30-5.90) m/uL Hgb 11.3 L 11.0 L (13.0-17.5) gm/dL Hct 35.8 L 35.4 L (39.0-53.0) % RDW 15.6 H (11.5-15.5) % Plt Count 490 H 462 H (150-450) k/uL Neutrophils # 33.3 H (1.3-7.7) k/uL Monocytes # 1.2 H (0-1.0) k/uL Chloride 111 H (98-107) mmol/L Carbon Dioxide 17 L (22-30) mmol/L BUN 26 H (9-20) mg/dL Glucose 175 H (74-99) mg/dL Microbiology - Last 24 Hours (Table) 07/27/17 01:15 Urine Culture - Final Urine,Voided Assessment and Plan Assessment: Impression History of cystic fibrosis follows with a specialist at [facility] Present on admission diffuse abdominal pain nonradiating suspect due to partial small bowel obstruction CAT scan of the abdomen pelvis report indicates partial small bowel obstruction secondary to mucus buildup probably related to cystic fibrosis in the jejunal area Esophageal reflux disease Past surgical history cholecystectomy, hernia repair, sinus surgery Plan Agree with transferring patient to [facility] cystic fibrosis specialists defer to the timing to the attending IV fluid for hydration Toradol for pain avoid the use of narcotics Will follow with you continue bowel stimulant Keep nothing by mouth The above impression and plan of care have been discussed and directed by signing physician. Debora Vargas nurse practitioner acting as scribe for signing physician. <Yung Galicia - Last Filed: 07/28/17 15:06> Objective - Vital Signs Vital signs: Vital Signs Temp 97.8 F 07/28/17 07:00 Pulse 110 H 07/28/17 08:00 Resp 16 07/28/17 08:00 BP 156/98 07/28/17 07:00 Pulse Ox 97 07/28/17 07:00 Intake & Output 07/27/17 07/28/17 07/28/17 18:59 06:59 18:59 Intake Total 1150 2090 1380 Output Total 1100 600 Balance 50 1490 1380 Intake: Intake, IV Titration 1050 1200 900 Amount Piperacillin-Tazobactam 3 50 .375 gm In Dextrose/Water 1 50ml.bag @ 12.5 mls/hr IVPB ONCE STA Rx#: [id number] Sodium Chloride 0.9% 1, 1000 1200 900 000 ml @ 150 mls/hr IV . Q6H40M [facility] Rx#:[id number] Oral 100 890 480 Output: Urine 1100 Emesis 600 Other: Voiding Method Toilet Toilet Toilet Urinal Urinal Urinal # Voids 0 2 5 - Labs CBC & Chem 7: 07/28/17 09:46 07/28/17 06:54 Labs: Abnormal Lab Results - Last 24 Hours (Table) 07/28/17 07/28/17 07/28/17 Range/Units 06:54 06:54 09:46 WBC 43.2 H* 35.8 H* (3.8-10.6) k/uL RBC 4.28 L 4.17 L (4.30-5.90) m/uL Hgb 11.3 L 11.0 L (13.0-17.5) gm/dL Hct 35.8 L 35.4 L (39.0-53.0) % RDW 15.6 H (11.5-15.5) % Plt Count 490 H 462 H (150-450) k/uL Neutrophils # 33.3 H (1.3-7.7) k/uL Monocytes # 1.2 H (0-1.0) k/uL Chloride 111 H (98-107) mmol/L Carbon Dioxide 17 L (22-30) mmol/L BUN 26 H (9-20) mg/dL Glucose 175 H (74-99) mg/dL Microbiology - Last 24 Hours (Table) 07/27/17 01:15 Urine Culture - Final Urine,Voided Assessment and Plan Assessment: As above. Patient known to our service from previous cholecystectomy. Patient has a history of advanced cystic fibrosis and was recently treated for exacerbation of CF with IV Zosyn 3 weeks. He just finished these antibiotics 2 -3 weeks ago. Starting 2 days ago he began experiencing mid abdominal pain. This was associated with episodes of nausea and vomiting as well as abdominal distention. Pain on Friday was a 10 out of 10. Today and yesterday the pain has been between a 7 and 8. He has had episodes similar to this in the past. Most recently 2 years ago however his symptoms resolved that admission over a 24 -hour period. CAT scan that was performed on the day of admission revealed some dilatation of the proximal and mid jejunum with inflammatory changes or thickening of the bowel wall. The distal small bowel and colon appeared normal. There was a small amount of free fluid within the abdomen. Today his white blood cell count was noted to increase rather dramatically from 18-40 repeat was in the mid 30s. The patient's has been in contact with the patient's cystic fibrosis specialist at [facility]. Prior to my arrival today the decision was made for the patient to be transferred. 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 He has never had a muscle biopsy but is treated as a patient since that time. The patient has declined a nasogastric tube placement. He has had multiple sinus surgeries in the past and there is concern regarding the possibility of traumatic insertion. Repeat abdominal x-rays were ordered for today those results are pending. A Gastrografin enema had been ordered for today however after reviewing the CAT scan findings with radiology and also the fact that Gastrografin is not available at our institution the enema was canceled. The clinical scenario was discussed in detail with the patient and his family. The concern regarding the elevated white blood cell count was reviewed. We will remain on surgical standby in the event that the transfer to the tertiary [facility] does not take place.
--- NOTE | 2017-07-28 13:54 | P.TRANS ---
Providers Date of admission: 07/27/17 01:15 Expected date of discharge: 07/28/17 Attending physician: Quentin Acosta Consults: 07/27/17 03:09 Consult Physician Routine Consulting Provider: Yung Galicia Consult Reason/Comments: abdominal pain Do you want consulting provider notified?: Yes 07/27/17 12:43 Consult Physician Routine Consulting Provider: Nery Nichols Consult Reason/Comments: cystic fibrosis distal instestinal obstructive syndrome Do you want consulting provider notified?: Yes 07/28/17 08:41 Consult Physician Routine Consulting Provider: Avelina Carter Consult Reason/Comments: leukocytosis Do you want consulting provider notified?: Yes Primary care physician: Quentin Acosta [facility] Course: 36 year old male who presented to the emergency room on 07/27/2017 with abdominal pain. Patient has a history of cystic fibrosis and follows with a specialist at [facility]. CT of the abdomen revealed partial small bowel obstruction secondary to mucus buildup from cystic fibrosis in the jejunal area. General surgery has been consulted to evaluate the patient. The patient was seen and examined at the bedside on rounds with Dr. Acosta. Patient is sitting up at the site of the bed eating full liquid diet. Patient does complain of slight nausea but denies vomiting. Patient states he is passing flatus. Patient's last bowel movement was 07/26/2017. Patients heart rate was in the 130s this morning. Patient takes cardizem at home but has not been receiving it during hospitalization. Patient does complain of abdominal pain. Patient has been receiving Toradol which patient states has been helping. Dr. Acosta spoke with patient regarding narcotics and would like to avoid use of narcotics if Toradol is managing pain due to his bowel obstruction. WBC this morning is 43.2, up from 18.5 on 07/26/2017. Patient has been afebrile. Infectious disease was consulted and the patient was started on Zosyn Q 8 hours. Blood pressure is slightly elevated this morning at 156/98 which may be secondary to nausea and pain. [facility] is requesting that patient be transferred to their facility as his cystic fibrosis specialist is there. Dr. Acosta is agreeable to transfer to [facility] and will be evaluated by a general surgeon there for his bowel obstruction. 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 Signing provider agrees with the documented findings, assessment, and plan of care. Patient Condition at Discharge: Fair Plan - Transfer Summary Transfer Medications: Active Medications Generic Name Dose Route Start Last Admin Trade Name Freq PRN Reason Stop Dose Admin Hydrocodone Bitart/Acetaminophen 1 each 07/27/17 01:17 [place] 7.5-325 PO Q6HR PRN MODERATE Pain Albuterol Sulfate 2.5 mg 07/27/17 01:17 07/28/17 07:20 Ventolin Nebulized INHALATION 2.5 mg RT-Q6H PRN Administration Shortness Of Breath Lipase/Protease/Amylase 4 each 07/27/17 08:[address] 5,000 Units Capsule PO QID PRN TAKES WHEN EATING Azithromycin 250 mg 07/28/17 09:00 07/28/17 08:19 Zithromax PO 250 mg [id number] YELENA Administration Budesonide/Formoterol Fumarate 2 puff 07/27/17 08:00 07/28/17 07:20 Symbicort 80-4.5 Mcg Inhaler INHALATION 2 puff RT-BID YELENA Administration Cholecalciferol 2,000 unit 07/27/17 09:00 07/28/17 08:19 Vitamin D3 PO 2,000 unit DAILY YELENA Administration Diltiazem HCl 180 mg 07/28/17 09:00 07/28/17 09:34 Cardizem Cd PO 180 mg DAILY YELENA Administration Dornase Ag 1 mg 07/27/17 08:00 07/28/17 07:20 Pulmozyme INHALATION 1 mg RT-DAILY YELENA Administration Fluticasone Propionate 1 spray 07/27/17 09:00 07/28/17 08:19 Flonase Nasal [place] EA NOSTRIL 1 spray BID YELENA Administration Sodium Chloride 1,000 mls @ 150 mls/hr 07/27/17 01:15 07/28/17 11:17 Saline 0.9% IV 150 mls/hr .Q6H40M YELENA Administration Piperacillin/Tazobactam/ 50 mls @ 12.5 mls/hr 07/28/17 10:31 07/28/17 11:17 Dextrose 3.375 gm/ IV Solution IVPB 12.5 mls/hr Q8HR YELENA Administration Insulin Aspart 6 - 10 unit 07/28/17 12:30 07/28/17 12:23 Novolog SQ Not Given AC-TID [facility] Insulin Detemir 16 unit 07/28/17 21:00 Levemir SQ HS [facility]1983 Ketorolac Tromethamine 15 mg 07/27/17 10:18 07/28/17 11:12 Toradol IVP 08/01/17 10:19 15 mg Q6HR PRN Administration Pain Lactulose 30 gm 07/27/17 13:00 07/28/17 08:17 Cephulac PO 30 gm QID YELENA Administration Loratadine 5 mg 07/27/17 09:00 07/28/17 08:19 Claritin PO 5 mg DAILY YELENA Administration Miscellaneous Information 1 each 07/27/17 01:40 Rx Info: Iv Contrast Was Given MISCELLANE 07/29/17 01:40 DAILY PRN Per Protocol Naloxone HCl 0.2 mg 07/27/17 01:15 Narcan IV Q2M PRN Opioid Reversal Non-Formulary Medication 500 mg 07/27/17 07:30 07/28/17 09:35 Ursodiol [Ursodiol] PO Not Given AC-BID [facility] Ondansetron HCl 4 mg 07/27/17 01:15 07/28/17 07:42 Zofran IVP 4 mg Q8HR PRN Administration Nausea And Vomiting Pantoprazole Sodium 40 mg 07/27/17 10:30 07/28/17 07:44 Protonix IVP 40 mg BID YELENA Administration Follow up Appointment(s)/Referral(s): Quentin Acosta DO [Primary Care Provider] - 1-2 Days (after DC from [facility] ) Discharge Disposition: OTHER INSTITUTION NOT DEFINED
[2017-07-28 15:52] VITALS: BP 141/83; PULSE 89; TEMP 98.2
--- NOTE | 2017-07-28 16:27 | CONS ---
CONSULTATION DATE OF CONSULTATION: 07/28/17 REQUESTING PHYSICIAN: Dr. Quentin Acosta. REASON FOR CONSULTATION: Abdominal pain, nausea, vomiting. Possible small bowel obstruction. HISTORY OF PRESENT ILLNESS: The patient is a 36-year-old pleasant white male who was admitted to the hospital with history of cystic fibrosis and follows at [facility], was admitted to the hospital with acute small-bowel obstruction. He presents with abdominal pain for the last 3 days duration associated with intermittent nausea, vomiting, came to the emergency room and had a CT of the abdomen and pelvis done that showed dilated small bowel loops consistent with small bowel obstruction related to mucous plugging. Since being in the hospital he is feeling a little bit better today. Still has some periumbilical abdominal pain. No more nausea, vomiting. He passed some gas today. He had a small bowel movement this morning. In the past, he had several episodes of partial small bowel obstruction during hospitalization for one or two days and was discharged home. The last one happened about 2 years ago. He denies any fever, chills, or night sweats. He was just discharged home from the hospital about 3 weeks ago at which time he was admitted with pneumonia and was treated with IV Zosyn for a total of 3 weeks that he completed a week ago. He denies any fever, chills, or night sweats. PAST MEDICAL HISTORY: Significant for cystic fibrosis, multiple lung infections. PAST SURGICAL HISTORY: Cholecystectomy, hernia repair, sinus surgery, ear surgery. SOCIAL HISTORY: No smoking. No alcohol use. FAMILY HISTORY: Unremarkable. Father had some coronary artery disease. REVIEW OF SYSTEMS: Cardiopulmonary: No chest pain, shortness of breath. Genitourinary: No dysuria or hematuria. Musculoskeletal unremarkable. Skin unremarkable. Endocrine unremarkable. Psychiatric unremarkable. Neurology unremarkable. ENT vision unremarkable. Constitutional: No recent weight loss. No fever, chills, night sweats. GI as mentioned above. HOME MEDICATIONS: Include Ventolin, Zithromax, Zyrtec, vitamin D3, Nexium, Flonase, Advair, Motrin, Zenpep, Pulmozyme, Cardizem, Lantus. ALLERGIES: DEMEROL. PHYSICAL EXAMINATION: He appears comfortable in no apparent distress. Vital signs stable. Blood pressure is 112/82, pulse rate is 130 per minute. Afebrile. HEENT examination unremarkable. Conjunctivae pink. Sclerae anicteric. Oral cavity no lesions. Neck no JVD or lymph node enlargement. Chest was decreased breath sounds bilaterally. Abdomen is slightly distended. Decreased bowel sounds, very tympanic. Mild tenderness in the periumbilical area. Extremities: No pedal edema. Skin no rashes. NEUROLOGIC: Alert and oriented x3. No focal deficits. LABS: At the time of admission to the hospital, WBC was 18.5. This morning was 43.2, and repeat one is 35.8. Hemoglobin is 11, platelets 462. Basic metabolic panel is within normal limits. IMPRESSION: 1. The patient presents with history of cystic fibrosis present to the hospital with abdominal pain, abdominal distention, nausea, vomiting for the last [address] scan of the abdomen done in the emergency room did show evidence of small bowel dilation with multiple small bowel loops in the upper abdomen and some thickening of the small bowel loops seen. Abdominal x-ray from today showed persistent dilated small bowel loops pattern suggestive of partial obstruction. Colon was not distended. 2. Severe leukocytosis. The patient recently was treated for a pulmonary infection about 3 weeks ago and he completed a course of the Zosyn for 3 weeks on outpatient basis about a week ago. Dr. Carter has been consulted. RECOMMENDATIONS: 1. IV fluids. 2. Keep him n.p.o. 3. We will discuss with Dr. Galicia. 4. I agree with ID consultation in regards to severe leukocytosis. 5. The family asked me about possibility of doing a Gastrografin enema that was recommended by his cystic fibrosis physician at [facility], but at this time I recommended that we will wait for Dr. Galicia to evaluate the patient. 6. Continue with IV Protonix. 7. We will follow the patient closely during his hospital stay. Thank you for this consultation. MMODL / IJN: [id number] /
--- NOTE | 2017-07-28 16:36 | CONS ---
CONSULTATION DATE OF SURGERY: 07/28/2017 REASON FOR CONSULTATION: Leukocytosis. HISTORY OF PRESENT ILLNESS: The patient is a 36-year-old male with a past medical history significant for cystic fibrosis. He recently had an extensive stay at [facility], where the patient was treated for the cystic fibrosis involving the lungs and has been on 3 weeks of IV Zosyn. The patient subsequently was discharged home, stabilized, and has not been on any antibiotic for the last few days. The patient started having pain in the abdominal area on Friday; that is the day of presentation to the hospital. Pain has been mostly in the epigastric upper abdominal area. Pain is described to be sharp, almost 10 out of 10, and severe, with associated nausea and vomiting but no diarrhea. The patient's last bowel movement was on Friday, a small one. No bowel movement since then, though he has passed a small amount of flatus today. With these symptoms, the patient was evaluated by the ER physician. The patient did have a CT of the abdomen and pelvis completed early in the morning on July 27 which shows multiple small bowel loops in the upper abdomen with wall thickening involving the jejunum. Some of the apparent wall thickening could be related to significant mucus buildup. An infiltrative process involving the small bowel wall cannot be entirely excluded. Dilation is almost 4 cm. The patient did receive a dose of Zosyn in the ER. Subsequently those are continued. The patient has been afebrile throughout his hospital stay. He did have a white count of 18.5 when he presented on July 26. Blood work was not done on July 27. Repeat this morning was 43.2. That prompted this infectious disease consult for further evaluation. The patient's breathing is currently baseline. The patient denies having any significant chest pain. He did have some cough but this is baseline for him, with no chest pain and no urinary symptoms. REVIEW OF SYSTEMS: CONSTITUTIONAL: Positive for weakness but no fever. EYES: No complaint. ENT: No complaint. RESPIRATORY: As per HPI. CARDIOVASCULAR: No complaint. GENITOURINARY: No complaint. GASTROINTESTINAL: As per HPI. MUSCULOSKELETAL: No complaint. INTEGUMENTARY: No complaint. PSYCHOLOGICAL: No complaint. ENDOCRINE: No complaint. NEUROLOGICAL: No complaint. PAST MEDICAL HISTORY: 1. Cystic fibrosis. 2. Pneumonia. PAST SURGICAL HISTORY: 1. Cholecystectomy. 2. Hernia repair. 3. Ear surgery. SOCIAL HISTORY: He denies any history of smoking, drinking or drug use. FAMILY HISTORY: Father with history of heart disease. ALLERGIES: 1. MEPERIDINE. 2. MORPHINE. CURRENT MEDICATIONS: 1. [place]. 2. Ventolin. 3. Zenpep. 4. Zithromax. 5. Symbicort. 6. Vitamin D3. 7. Cardizem. 8. Pulmozyme. 9. Flonase nasal spray. 10.NovoLog. 11.Levemir. 12.Toradol. 13.Lactulose. 14.Claritin. 15.Narcan. 16.Ursodiol. 17.Zofran. 18.Protonix. 19.IV fluid. PHYSICAL EXAMINATION: Blood pressure is 156/98 with a pulse of 110, temperature 97.8. He is 97% on 2 L nasal cannula. General description is a middle-aged male up in the bed in no distress. No tachypnea or accessory muscle of respiration use. HEENT examination shows pallor. There is no scleral icterus. Oral mucous membrane is moist. No pharyngeal erythema or thrush. NECK: Trachea is central. No thyromegaly. LUNGS: Unlabored breathing with decreased intensity of breath sounds. No wheeze. HEART: S1, S2. Tachycardic. No added sound. ABDOMEN: Soft. Slightly distended. No guarding. No rigidity. No organomegaly. EXTREMITIES: No edema of the feet. SKIN EXAMINATION: No rashes or mass palpable. NEUROLOGICAL: Patient is awake, alert, oriented x3. Mood and affect normal. LABS: Hemoglobin is 11, white count 35.8. Admission white count was 43.2 with a BUN of 26, creatinine 0.92. Urine was negative. Urine culture negative. CT report as mentioned above. DIAGNOSTIC IMPRESSION AND PLAN: Patient with significantly elevated white count in a patient admitted to hospital with symptoms of abdominal pain and nausea and vomiting with evidence of a small-bowel obstruction and some thickening of the small bowel loops on the CT, likely the source of this elevated white count. Clinically no worsening respiratory symptoms suspicious for pneumonia. His UA was negative. No evidence of cellulitis or joint swelling. PLAN: 1. Blood cultures x2 STAT. 2. We will empirically start the patient on the Zosyn 3.375 grams IV piggyback q.8 hours. 3. Will monitor his clinical course closely as well as culture and adjust his medication further if needed. Family was present at bedside. All their questions and concerns were answered. MMODL / IJN: [id number] /
[2017-07-28 17:40] LABS: Glucose,Whole Blood 137 mg/dL (75-99)
[2017-07-28] MEDS ORDERED: INSULIN DETEMIR 100 UNIT/ML 10 ML VIAL SQ SCH (21:00)
== END 2017-07-28 18:40 | disposition short-term general hospital (02) | DRG 395 ==
LOC: EC 23:19 → 5MS5E 07-27 01:15
PROVIDERS: ADMIT Family Medicine; ATTEND Family Medicine
DX: E84.19 Cystic fibrosis with other intestinal manifestations (principal); D72.829 Elevated white blood cell count, unspecified; K21.9 Gastro-esophageal reflux disease without esophagitis; Z90.49 Acquired absence of other specified parts of digestive tract; Z82.49 Family history of ischemic heart disease and other diseases of the circulatory system; Z79.4 Long term (current) use of insulin; Z79.51 Long term (current) use of inhaled steroids; Z79.899 Other long term (current) drug therapy; Z98.890 Other specified postprocedural states; Z87.01 Personal history of pneumonia (recurrent); Z88.5 Allergy status to narcotic agent; Z79.2 Long term (current) use of antibiotics
CPT/HCPCS: 36415; 74019; 74021; 74177; 80048; 80053; 81001; 82150; 83690; 85025; 85027; 87040; 87086; 94640; 96361; 96365; 96375; 96376; 99285